=== PATIENT | female | born 1990 | race Caucasian/White ===

== ENCOUNTER 2017-03-04 15:41 | Emergency (ER) | payer MEDICAID ==
[~2017-03-04] VITALS: Ht 157.5 cm; Wt 60.3 kg
[2017-03-04 15:50] VITALS: BP 124/51
== END 2017-03-04 19:06 | disposition home or self-care (01) ==
LOC: ED 15:41
DX: M54.6 Pain in thoracic spine (principal); R42 Dizziness and giddiness
CPT/HCPCS: 72072

== ENCOUNTER 2018-11-12 20:38 | Emergency (ER) | payer MEDICAID ==
[~2018-11-12] VITALS: Ht 160 cm; Wt 63.0 kg
[2018-11-12 20:43] VITALS: Ht 160 cm; Wt 63.0 kg
[2018-11-12 23:07] VITALS: BP 105/76
== END 2018-11-12 23:07 | disposition home or self-care (01) ==
LOC: ED 20:38
DX: R51 Headache (principal)
CPT/HCPCS: 36415; J1885

== ENCOUNTER 2019-02-19 09:31 | Emergency (ER) | payer MEDICAID ==
[~2019-02-19] VITALS: Ht 157.5 cm; Wt 65.8 kg
[2019-02-19 09:39] VITALS: Ht 157.5 cm; Wt 65.8 kg
[2019-02-19 11:58] VITALS: BP 110/64
== END 2019-02-19 11:58 | disposition home or self-care (01) ==
LOC: ED 09:31
DX: J06.9 Acute upper respiratory infection, unspecified (principal); Z90.49 Acquired absence of other specified parts of digestive tract; Z87.19 Personal history of other diseases of the digestive system; Z98.890 Other specified postprocedural states
CPT/HCPCS: 87804; J1885

== ENCOUNTER 2020-12-10 21:08 | Emergency (ER) | payer MEDICAID ==
[~2020-12-10] VITALS: Ht 157.5 cm; Wt 65.8 kg
[2020-12-10 21:21] VITALS: Ht 157.5 cm; Wt 65.8 kg
[2020-12-10 22:27] LABS: BASOPHIL % 0.8 % (0.2-1.3); PLATELET COUNT 284 x10^3mcL (179-408); RED CELL DISTRIBUTION WIDTH 13.4 % (12.3-17.7)
[2020-12-10 23:26] VITALS: BP 111/69
== END 2020-12-10 23:26 | disposition home or self-care (01) ==
LOC: ED 21:08
PROVIDERS: Emergency Medicine
DX: O03.9 Complete or unspecified spontaneous abortion without complication (principal); Z98.890 Other specified postprocedural states; Z90.49 Acquired absence of other specified parts of digestive tract